=== PATIENT | male | born 1990 | race Caucasian/White ===

== ENCOUNTER 2018-10-02 09:25 | Emergency (ER) | payer SELFPAY ==
[2018-10-02 09:36] VITALS: BP 161/78; PULSE 87; TEMP 98.3; BMI 32.4
--- NOTE | 2018-10-02 10:16 | PDOC ---
History of Present Illness - General Chief Complaint: Pain Stated Complaint: PAIN Time Seen by Provider: 10/02/18 09:55 - History of Present Illness Initial Comments: 10/02/18 10:07 28 M with no PMH presents to ED with R scrotal pain x 8 months. Pt states that the pain comes intermittently. DENIES any pain currently. He often feels it when he is at work and lifts up his pants. He denies noticing any masses or swelling in his scrotum. Denies dysuria. Denies discharge. Denies any lesions on his penis. No h/o STD. Is not sexually active. Denies F/C. Pt states he has been seen for this before. Went to a urologist and was told everything was normal. Has not f/u'ed with urologist since. Past History - Past Medical History COPD: No - Suicide/Smoking/Psychosocial Hx Smoking History: Never smoked Review of Systems - Review of Systems Comments:: 10/02/18 10:09 GENERAL/CONSTITUTIONAL: No fever or chills. No weakness. HEAD, EYES, EARS, NOSE AND THROAT: No change in vision. No ear pain or discharge. No sore throat. CARDIOVASCULAR: No chest pain, no shortness of breath, no loss of consciousness RESPIRATORY: No cough, wheezing, or hemoptysis. GASTROINTESTINAL: No nausea, vomiting, diarrhea or constipation. GENITOURINARY: + r scrotal pain, No dysuria, frequency, or change in urination. MUSCULOSKELETAL: No joint or muscle swelling or pain. No neck or back pain. SKIN: No rash NEUROLOGIC: No vertigo, no change in strength/sensation. ENDOCRINE: No increased thirst. No abnormal weight change. HEMATOLOGIC/LYMPHATIC: No anemia, easy bleeding, or history of blood clots. ALLERGIC/IMMUNOLOGIC: No hives or skin allergy. *Physical Exam - Vital Signs Last Vital Signs Temp Pulse Resp BP Pulse Ox 98.3 F 87 16 161/78 100 10/02/18 09:34 10/02/18 09:34 10/02/18 09:34 10/02/18 09:34 10/02/18 09:34 - Physical Exam Comments: 10/02/18 10:09 "GENERAL: Awake, alert, and fully oriented, in no acute distress. HEAD: No signs of trauma EYES: PERRLA, EOMI, sclera anicteric, conjunctiva clear ENT: Auricles normal inspection, hearing grossly normal, nares patent, oropharynx clear without exudates. Moist mucosa NECK: Nontender, no stepoffs, Normal ROM, supple, no lymphadenopathy, JVD, or masses LUNGS: Breath sounds equal, clear to auscultation bilaterally. No wheezes, and no crackles HEART: Regular rate and rhythm, normal S1 and S2, no murmurs, rubs or gallops ABDOMEN: Soft, nontender, normoactive bowel sounds. No guarding, no rebound. No masses EXTREMITIES: Normal range of motion, no edema. No clubbing or cyanosis. No cords, erythema, or tenderness NEUROLOGICAL: Cranial nerves II through XII intact. 5/5 strength and sensation in all extremities, Normal speech, normal gait, normal cerebellar function SKIN: Warm, Dry, normal turgor, no rashes or lesions noted. : uncircumcised penis, normal scrotal lay, normal cremasteric reflex, no swelling, no masses, no inguinal hernia, no lesions or discharge ED Treatment Course - RADIOLOGY Radiology Studies Ordered: Category Date Time Status SCROTUM AND CONTENTS US [US] Stat Ultrasound 10/02/18 10:04 Ordered Medical Decision Making - Medical Decision Making 10/02/18 10:10 28 M with intermittent R scrotal pain, currently pain free. Exam normal. No evidence of active torsion or inguinal hernia. Possible intermittent torsion. No evidence of infectious process. - UA, UCx - Scrotal US 10/02/18 12:12 UA wnl US shows microlithiasis. Pt given urology f/u. Pt is well appearing, with normal vitals. Clinically stable for DC at this time. I discussed the physical exam findings, ancillary test results and final diagnoses with the patient. I answered all of the patient's questions. The patient was satisfied with the care received and felt comfortable with the discharge plan and treatment plan. The patient agrees to follow up with the primary care physician within 24-72 hours. *DC/Admit/Observation/Transfer Diagnosis at time of Disposition: Scrotal pain - Discharge Dispostion Disposition: HOME - Referrals Referrals: Alonso Monreal MD [Staff Physician] - - Patient Instructions Additional Instructions: Your ultrasound showed small calcifications on your testicles. Follow up with a urologist for further evaluation of your testicular pain. Call the number provided to make an appointment within 1 week. If you experience worsening or persistent pain, fevers, abdominal pain, or any other concerning symptoms, return to the ER immediately. You also need to have your blood pressure re-checked by your primary doctor, as it was slightly elevated today. Uncontrolled blood pressure can eventually lead to kidney disease, heart disease, other serious illness, disability, or even . Alcantar ultrasonido mostr pequeas calcificaciones en agustin testculos. Reyes un seguimiento con un urlogo para sachin evaluacin adicional de alcantar dolor testicular. Llame al nmero proporcionado para hacer sachin oswaldo dentro de 1 semana. Si experimenta un empeoramiento o dolor persistente, fiebre, dolor abdominal o cualquier otro sntoma relacionado, regrese a la brian de emergencias inmediatamente. Kirstie es necesario ir a alcantar doctor primario para chequear alcantar presion, ya que hoy estaba elevado. La presin arterial no controlada puede conducir eventualmente a enfermedades renales, enfermedades del corazn, otras enfermedades graves, discapacidades o incluso la muerte. - Post Discharge Activity Forms/Work/School Notes: Back to Work - Attestations Physician Attestion: 10/02/18 12:11 I, Dr. Khari Lacey MD, attest that this document has been prepared under my direction and personally reviewed by me in its entirety. I further attest, that it accurately reflects all work, treatment, procedures and medical decision -making performed by me.
[2018-10-02 11:18] LABS: PH,URINE 7.5 (5.0-8.0); URINE APPEARANCE CLEAR; URINE BILIRUBIN NEGATIVE (NEGATIVE); URINE COLOR YELLOW; URINE GLUCOSE (UA) NEGATIVE (NEGATIVE); URINE KETONE NEGATIVE (NEGATIVE); URINE LEUK ESTERASE NEGATIVE (NEGATIVE); URINE NITRITE NEGATIVE (NEGATIVE); URINE PROTEIN NEGATIVE (NEGATIVE); URINE UROBILINOGEN 0.2 mg/dL (0.2-1.0)
== END 2018-10-02 12:26 | disposition home or self-care (01) ==
LOC: JER 09:25
DX: N50.811 Right testicular pain (principal)
CPT/HCPCS: 76870-TC; 81003; 87086; 99282-25